=== PATIENT | female | born 1960 | race Caucasian/White ===

== ENCOUNTER 2017-09-05 17:33 | Emergency (ER) | payer MEDICARE, MEDICAID ==
[2008-05-25 14:51] VITALS: BP 160/90
[~2017-09-05] VITALS: Ht 147.3 cm; Wt 75.0 kg
[~2017-09-05 17:33] MED LIST: AKWA TEARS 15 M15 ML OP; ASPIRIN 81M81 MG/TA2 PO; ASPIRIN E.C. 8181 MG PO; ATIVAN 0.50.5 MG/TAB PO; ATIVAN 2MG/ML2 MG/ML IM; ATIVAN 2MG/ML2 MG/ML IV; B-1250 MCG PO; B2-5050 MG PO; BENADRYL25 M2 PO; CELEXA20 MG PO; COLACE 100100 MG/CAP PO; DEPAKOTE 250MG250 MG PO; DESYREL 50MG50 MG PO; DOXYCYCLINE 10100 MG PO; FLEXERIL; FLONASE NASAL S16 GM NS; GEODON 20M20 MG/VIAL IM; HALDOL 2MG T2 MG/TAB PO; HALDOL 5MG/ML5 MG/ML IM; KENALOG0.1% TP; KLONOPIN 1MG1 MG PO; KLONOPIN0.5 MG PO; LASIX 20MG TABL20 MG PO; LASIX20 MG PO; LIORESAL 1010 MG/TAB PO; LOPERAMIDE HCL2 MG PO; LORTAB 10/500 51 TAB PO; MORP4 IV; MULTI VITAMINS1 TAB PO; MULTIPLE VITAMI1 CAP PO; NEXIUM 40MG40 MG PO; NORCO 325 MG-101 TAB PO; NORCO 325 MG-7.1 TAB PO; OXYCONTIN40 MG PO; PHENERGAN 25 TA25 MG PO; PREDNISONE20 MG PO; PRILOSEC 20MG20 MG PO; PRILOSEC20 MG PO; PROAIR HFA0.09 MG/AC IH; QUESTRAN4 GM/9 GM PO; REQUIP2 MG PO; ROPINIROLE HYDRO2 MG PO; ROXANOL 20MG20 MG/ML PO; RT ALBUTER2.5 MG/0.5 IH; SEROQUEL 1100 MG/TAB PO; SEROQUEL XR200 MG PO; THEO-DUR 3300 MG/TAB PO; THEO-DUR450 MG PO; THEOPHYLLINE300 M2 PO; TRANSDERM-0.5 MG/21 TD; UNABLE; UNABLE TO ASSESS; VALIUM 10MG10 MG/TAB PO; VENTOLIN0.09 MG IH; VITAMIN D NATU400 IU PO; VITAMIN D31000 IU PO; ZANTAC 150MG T150 MG PO; ZEBETA10 MG PO; ZITHROMAX 250M250 MG PO; ZYPREXA10 MG PO
[2017-09-05 17:34] VITALS: TEMP 98.8
[2017-09-05] MEDS ORDERED: NEURONTIN300 MG/CAP PO (18:03)
[2017-09-05] MEDS ORDERED: IPRATROPIUM BROM3 M1 IH (18:03)
[2017-09-05 18:04] LABS: BASO # 0.1 (0.0-0.2); BASO % 0.3 % (0.0-2.0); EOS # 0.1 (0.0-0.7); EOS % 0.4 % (0-4.0); GRAN # 14.2 (1.4-6.5); GRAN % 87.2 % (42.2-75.2); HEMATOCRIT 43.9 % (37.0-47.0); HEMOGLOBIN 14.3 g/dl (12.5-16.0); LYMPH # 1.1 (1.2-3.4); LYMPH % 6.5 % (20.0-51.0); MEAN CELL VOLUME 102 fl (80.0-100.0); MEAN CORPUSCULAR HEMOGLOBIN 33 pg (27.0-31.0); MEAN CORPUSCULAR HGB CONC 33 g/dl (33.0-37.0); MONO # 0.9 (0.1-0.6); MONO % 5.4 % (1.7-9.3); PLATELET COUNT 231 K/mm3 (130-400); RED BLOOD COUNT 4.31 M/mm3 (4.10-5.30); WHITE BLOOD COUNT 16.2 K/mm3 (4.8-10.8)
[2017-09-05 18:14] LABS: ALBUMIN 3.6 gm/dL (3.5-5.0); BILIRUBIN,TOTAL 0.6 mg/dL (0.0-1.0); CALCIUM 9.7 mg/dL (8.4-10.2); CREATININE, serum 0.9 mg/dL (0.52-1.25); POTASSIUM 4.1 mmol/L (3.4-5.0); TOTAL PROTEIN 6.6 gm/dL (6.4-8.2)
[2017-09-05] MEDS ORDERED: MEDROL 4MG DOSPA4 MG PO (18:54)
[2017-09-05] MEDS ORDERED: ZITHROMAX 250M250 MG PO (18:55)
[2017-09-05 19:17] VITALS: BP 127/78; PULSE 92
== END 2017-09-05 19:30 | disposition home or self-care (01) ==
LOC: COL.ER 17:33
PROVIDERS: Emergency Medicine
DX: K46.0 Unspecified abdominal hernia with obstruction, without gangrene (principal); J44.1 Chronic obstructive pulmonary disease with (acute) exacerbation; I10 Essential (primary) hypertension; F41.9 Anxiety disorder, unspecified; Z79.82 Long term (current) use of aspirin
CPT/HCPCS: J3010; J7512